=== PATIENT | male | born 1990 | race Caucasian/White ===

== ENCOUNTER 2018-01-19 16:29 | Emergency (ER) ==
[~2018-01-19] VITALS: Ht 180.3 cm; Wt 113.6 kg
== END 2018-01-19 17:32 | disposition home or self-care (01) ==
LOC: COL.ER 16:29
DX: J02.0 Streptococcal pharyngitis (principal); F12.90 Cannabis use, unspecified, uncomplicated; Z96.22 Myringotomy tube(s) status; Z87.891 Personal history of nicotine dependence
CPT/HCPCS: J0561

== ENCOUNTER 2018-11-13 03:21 | Emergency (ER) | payer SELFPAY ==
[~2018-11-13] VITALS: Ht 182.9 cm; Wt 129.5 kg
[2018-11-13 03:33] VITALS: BP 135/93; TEMP 97
[2018-11-13 04:28] LABS: STREP SCREEN NEGATIVE
[2018-11-13 05:50] VITALS: PULSE 93
[2018-11-14] MEDS ORDERED: CEPHALEXIN500 M1 PO (14:30)
== END 2018-11-13 05:50 | disposition home or self-care (01) ==
LOC: COL.ER 03:21
PROVIDERS: Emergency Medicine
DX: J02.9 Acute pharyngitis, unspecified (principal); J45.909 Unspecified asthma, uncomplicated; F17.210 Nicotine dependence, cigarettes, uncomplicated

== ENCOUNTER 2019-11-02 17:08 | Emergency (ER) | payer SELFPAY ==
[~2019-11-02] VITALS: Ht 180.3 cm; Wt 113.6 kg
[~2019-11-02 17:08] MED LIST: CEPHALEXIN500 M1 PO
[2019-11-02 17:12] VITALS: BP 134/95; TEMP 97.5
[2019-11-02 18:21] LABS: BASO % 0.3 % (0.0-2.0); EOS # 0.2 (0.0-0.7); EOS % 1.4 % (0-4.0); GRAN # 6.5 (1.4-6.5); GRAN % 60.6 % (42.2-75.2); HEMATOCRIT 45.3 % (42.0-52.0); HEMOGLOBIN 15.5 g/dl (13.5-18.0); LYMPH # 3.2 (1.2-3.4); MEAN CELL VOLUME 93 fl (80.0-100.0); MEAN CORPUSCULAR HEMOGLOBIN 32 pg (27.0-31.0); MEAN CORPUSCULAR HGB CONC 34 g/dl (33.0-37.0); MEAN PLATELET VOLUME 9.4 fl (7.4-10.4); MONO # 0.8 (0.1-0.6); MONO % 7.4 % (1.7-9.3); PLATELET COUNT 292 K/mm3 (130-400); RED BLOOD COUNT 4.89 M/mm3 (4.20-5.60); REDCELL DISTRIBUTION WIDTH-CV 11.8 % (11.5-14.5)
[2019-11-02 18:29] LABS: ALANINE AMINOTRANSFERASE 17 U/L (4-49); ALBUMIN 4.4 gm/dL (3.5-5.0); ALKALINE PHOSPHATASE 72 U/L (50-136); ANION GAP 6 mmol/L (7-16); AST,SGOT 26 U/L (15-37); BILIRUBIN,TOTAL 1.1 mg/dL (0.0-1.0); BLOOD UREA NITROGEN 15 mg/dL (9-20); CARBON DIOXIDE 28 mmol/L (22-30); CHLORIDE 104 mmol/L (98-107); CREATININE, serum 0.78 (0.66-1.25); GLUCOSE 86 mg/dL (74-106); POTASSIUM 4.1 mmol/L (3.4-5.0); SODIUM 138 mmol/L (137-145); TOTAL PROTEIN 7.5 gm/dL (6.4-8.2)
[2019-11-02 18:41] LABS: TROPONIN-I < 0.012 ng/mL (0.000-0.035)
[2019-11-02] MEDS ORDERED: ATARAX 25MG25 MG/TAB PO (19:26)
[2019-11-02 19:35] VITALS: PULSE 72
== END 2019-11-02 19:35 | disposition home or self-care (01) ==
LOC: COL.ER 17:08
PROVIDERS: Nurse Practitioner
DX: F41.9 Anxiety disorder, unspecified (principal); F17.210 Nicotine dependence, cigarettes, uncomplicated; Z88.8 Allergy status to other drugs, medicaments and biological substances
CPT/HCPCS: J2060; J7030

== ENCOUNTER 2020-05-04 12:13 | Emergency (ER) | payer OTHER ==
[~2020-05-04] VITALS: Ht 180.3 cm; Wt 113.6 kg
[~2020-05-04 12:13] MED LIST changes: +ATARAX 25MG25 MG/TAB PO
[2020-05-04 12:31] VITALS: TEMP 98
[2020-05-04] MEDS ORDERED: AMOXICILLIN 50500 MG PO (13:10)
[2020-05-04] MEDS ORDERED: PROAIR HFA0.09 MG/AC IH (13:10)
[2020-05-04 13:15] VITALS: BP 119/79; PULSE 89
== END 2020-05-04 13:23 | disposition home or self-care (01) ==
LOC: COL.ER 12:13
DX: K12.2 Cellulitis and abscess of mouth (principal); Z20.828 Contact with and (suspected) exposure to other viral communicable diseases; Z90.49 Acquired absence of other specified parts of digestive tract; Z88.8 Allergy status to other drugs, medicaments and biological substances

== ENCOUNTER 2021-07-19 10:13 | Emergency (ER) | payer OTHER ==
[~2021-07-19] VITALS: Ht 180.3 cm; Wt 143.2 kg
[~2021-07-19 10:13] MED LIST changes: +AMOXICILLIN 50500 MG PO; +PROAIR HFA0.09 MG/AC IH
[2021-07-19 10:31] VITALS: TEMP 97.4
[2021-07-19 10:51] VITALS: BP 137/83; PULSE 87
== END 2021-07-19 10:59 | disposition home or self-care (01) ==
LOC: COL.ER 10:13
DX: U07.1 COVID-19 (principal); J45.909 Unspecified asthma, uncomplicated; Z87.891 Personal history of nicotine dependence; Z79.899 Other long term (current) drug therapy

== ENCOUNTER 2024-01-31 21:23 | Emergency (ER) | payer OTHER ==
[~2024-01-31] VITALS: Ht 180.3 cm; Wt 120.5 kg
[2024-01-31 21:34] VITALS: TEMP 99
[2024-01-31] MEDS ORDERED: Ondansetron 4 MG/2 ML VIAL IV ONE (21:45)
[2024-01-31] MEDS ORDERED: NS 1,000 ML IV ONE (21:45)
[2024-01-31 21:58] LABS: BASO % 0.1 % (0.0-2.0); EOS # 0.1 K/mm3 (0.0-0.7); EOS % 0.8 % (0.0-4.0); GRAN # 11.1 K/mm3 (1.4-6.5); GRAN % 83.4 % (42.2-75.2); HEMATOCRIT 44.9 % (42.0-52.0); HEMOGLOBIN 15.3 g/dl (13.5-18.0); LYMPH # 1.3 K/mm3 (1.2-3.4); LYMPH % 9.6 % (20.0-51.0); MEAN CELL VOLUME 92 fl (80.0-100.0); MEAN CORPUSCULAR HEMOGLOBIN 31 pg (27-31); MEAN CORPUSCULAR HGB CONC 34 g/dl (33.0-37.0); MEAN PLATELET VOLUME 9.2 fl (7.4-10.4); MONO # 0.8 K/mm3 (0.1-0.6); MONO % 5.8 % (1.7-9.3); PLATELET COUNT 316 K/mm3 (130-400); RED BLOOD COUNT 4.88 M/mm3 (4.20-5.60); REDCELL DISTRIBUTION WIDTH-CV 11.7 % (11.5-14.5)
[2024-01-31] MEDS ORDERED: Morphine 4 MG/ML VIAL IV ONE (22:00)
[2024-01-31 22:14] LABS: ALBUMIN 4.1 g/dL (3.5-5.0); BILIRUBIN,TOTAL 1.5 mg/dL (0.2-1.2); CALCIUM 9.2 mg/dL (8.4-10.2); CREATININE, serum 0.93 mg/dL (0.72-1.25); POTASSIUM 3.9 mEq/L (3.5-4.5); TOTAL PROTEIN 7.6 g/dl (6.2-8.1)
[2024-01-31] MEDS ORDERED: Iohexol 300 - 100 ML VIAL IV ONE (22:14)
[2024-01-31] MEDS ORDERED: NS 50 ML IV ONE (22:15)
[2024-01-31 23:10] LABS: PH 5.5 (5.0-8.5); URINE APPEARANCE CLEAR (CLEAR/HAZY); URINE BLOOD TRACE (NEGATIVE); URINE COLOR YELLOW (YELLOW); URINE GLUCOSE NEGATIVE (NEGATIVE); URINE KETONE NEGATIVE (NEGATIVE); URINE NITRATE NEGATIVE (NEGATIVE); URINE PROTEIN(semi-quant) TRACE (NEGATIVE); URINE UROBILINOGEN 0.2 E.U/dL (0.2-1.0)
[2024-01-31] MEDS ORDERED: Azithromycin 250 MG TAB PO ONE (23:15)
[2024-01-31] MEDS ORDERED: ZOFRAN ODT4 MG PO (23:24)
[2024-01-31 23:31] VITALS: BP 150/97; PULSE 99
[2024-01-31 23:36] LABS: COLLECTION METHOD CLEAN CATCH
== END 2024-01-31 23:31 | disposition home or self-care (01) ==
LOC: COL.ER 21:23
PROVIDERS: Emergency Medicine
DX: K52.9 Noninfective gastroenteritis and colitis, unspecified (principal); Z90.49 Acquired absence of other specified parts of digestive tract
CPT/HCPCS: J2270; J2405; J7030; Q9967